=== PATIENT | female | born 1980 | race Caucasian/White ===

== ENCOUNTER 2016-09-24 17:04 | Emergency (ER) | payer MEDICAID ==
[2016-09-24] MEDS ORDERED: KCL CR 20 MEQ TAB PO ONE (19:17)
[2016-09-24] MEDS ORDERED: POTASSIUM CHLOR 10MEQ -ED ONLY 50 ML IV ONE (19:17)
[2016-09-24] MEDS ORDERED: SODIUM CHLORIDE 0.9% 500 ML IV ONE (19:18)
[2016-09-24] MEDS ORDERED: KETOROLAC 30 MG/ML VIAL ONE (20:21)
== END 2016-09-24 21:09 | disposition home or self-care (01) ==
LOC: ER 17:04
CPT/HCPCS: 36415; 80053; 81001; 83735; 85025; 87088; 93005; 96361; 96374